=== PATIENT | male | born 2000 | race Caucasian/White ===

== ENCOUNTER 2021-08-06 16:46 | Emergency (ER) | payer OTHER ==
[~2021-08-06] VITALS: Ht 167.6 cm; Wt 121.2 kg
[2021-08-06 16:46] VITALS: BP 135/70
--- OUTSIDE RECORDS SUMMARY | 2021-08-06 16:53 | CCD ---
Author Author [facility] Address Unknown Phone Unavailable Support Name Relationship Address Phone Karina Lawrence MD Next Of Kin [address], [place] [id number] Pro ROGEL-Ina LuceroZina Next Of Kin [address] [place], [place] [id number] [address] Next Of Kin Unknown Unavailable UE Next Of Kin Unknown Unavailable EDWARDO GARCIA Next Of Kin [address] [facility] [address] [address] Caroline Cuadra MD Next Of Kin [address] [place] [address] Re-disclosure Warning The records that you are about to access may contain information from federally-assisted alcohol or drug abuse programs. If such information is present, then the following federally mandated warning applies: This information has been disclosed to you from records protected by federal confidentiality rules (42 CFR part 2). The federal rules prohibit you from making any further disclosure of this information unless further disclosure is expressly permitted by the written consent of the person to whom it pertains or as otherwise permitted by 42 CFR part 2. A general authorization for the release of medical or other information is NOT sufficient for this purpose. The Federal rules restrict any use of the information to criminally investigate or prosecute any alcohol or drug abuse patient.The records that you are about to access may contain highly sensitive health information, the redisclosure of which is protected by Article 27-F of the [place] State Public Health law. If you continue you may have access to information: Regarding HIV / AIDS; Provided by facilities licensed or operated by the [facility] Office of Mental Health; or Provided by the [facility] Office for People With Developmental Disabilities. If such information is present, then the following [facility] mandated warning applies: This information has been disclosed to you from confidential records which are protected by state law. State law prohibits you from making any further disclosure of this information without the specific written consent of the person to whom it pertains, or as otherwise permitted by law. Any unauthorized further disclosure in violation of state law may result in a fine or snf sentence or both. A general authorization for the release of medical or other information is NOT sufficient authorization for further disc losure. Family History Family Member Name Family Member Gender Family Member Status Date o f Status Description Data Source(s) Unknown Unknown Problem [facility] ([facility]) Medications No Information Insurance Providers Payer name Policy type / Coverage type Policy ID Covered libertarian ID Covered libertarian's relationship to gilman Policy Gilman Plan Information Medicaid S [id number] S [id number] [facility] MEDICAID [id number] S [id number] Managed Care - Community Plan [facility] P [id number] S [id number] Medicaid S [id number] S [id number] Managed Care - Community Plan [facility] P [id number] S [id number] [facility] [id number] SP [id number] Medicaid S [id number] S [id number] Managed Care - Community Plan [facility] P [id number] S [id number] [facility] MEDICAID [place] O [id number] S [id number] Medicaid P [id number] S [id number] [facility](MCAID) O [id number] S [id number] [facility] Health Maintenance Organization (HMO) [id number] Self Managed Care BCBS O [id number] S [id number] Medicaid Dental O [id number] S [id number] Problems, Conditions, and Diagnoses No Information Surgeries/Procedures No Information Results No Information Social History No Information
--- OUTSIDE RECORDS SUMMARY | 2021-08-06 17:00 | CCD ---
Author Author [facility] Address Unknown Phone Unavailable Support Name Relationship Address Phone Karina Lawrence MD Next Of Kin [address], [place] [id number] Pro ROGEL-Ina LuceroZina Next Of Kin [address] [place], [place] [phone] [address] Next Of Kin Unknown Unavailable UE Next Of Kin Unknown Unavailable EDWARDO GARCIA Next Of Kin [address] [facility] [address] [address] Caroline Cuadra MD Next Of Kin [address] [place] [address] Re-disclosure Warning The records that you are [...] is protected by Article 27-F of the [place] State Public Health law. If you continue you may have access to information: Regarding HIV / AIDS; Provided by facilities licensed or operated by the [facility] Office of Mental Health; or Provided by the [facility] Office for People With Developmental Disabilities. If such information is present, then the following [facility] mandated warning applies: This information [...] law may result in a fine or shelter sentence or both. A general authorization for [...] type / Coverage type Policy ID Covered green party ID Covered green party's relationship to gilman Policy Gilman Plan Information Medicaid S [id number] S [id number] [facility] MEDICAID [id number] S [id number] Managed Care - Community Plan [facility] P [id number] S [id number] Medicaid S [id number] S [id number] Managed Care - Community Plan [facility] P [id number] S [id number] [facility] [id number] SP [id number] Medicaid S [id number] S [id number] Managed Care - Community Plan [facility] P [id number] S [id number] [facility] MEDICAID [place] O [id number] S [id number] Medicaid P [id number] S [id number] [facility](MCAID) O [id number] S [id number] [facility] Health Maintenance Organization (HMO) [id number] Self Managed Care BCBS O [id number] S [id number] Medicaid Dental O [id number] S [id number] Problems, Conditions, and Diagnoses No Information Surgeries/Procedures No Information Results No Information Social History No Information
== END 2021-08-06 16:57 | disposition home or self-care (01) ==
LOC: M ED 16:46
DX: Z53.21 Procedure and treatment not carried out due to patient leaving prior to being seen by health care provider (principal)